=== PATIENT | female | born 1955 | race Caucasian/White ===

== ENCOUNTER 2017-03-23 06:41 | Day surgery (SDC) | payer BC ==
[2017-03-20 11:13] VITALS: BMI 21.9
[2017-03-23] MEDS ORDERED: methylPREDNISolone ACET (DEPO) 40 MG/1 ML VIAL ONE (07:23)
[2017-03-23] MEDS ORDERED: BUPIVACAINE HCL/PF 2.5 MG/ML - 30 ML VIAL IJ ONE (07:24)
[2017-03-23] MEDS ORDERED: LIDOCAINE 1%/EPI 1:100000 (20 ML MULTI DOSE VIAL) ONE (07:24)
[2017-03-23] MEDS ORDERED: THROMBIN (BOVINE) 5,000 UNIT VIAL TP ONE ×2 (07:24→09:31)
--- NOTE | 2017-03-23 07:24 | HP ---
History & Physical Update - History History: No Change - Physical Physical: No Change - Assessment Assessment: No Change - Plan Plan: No Change
[2017-03-23] MEDS ORDERED: MIDAZOLAM HCL 2 MG/2 ML SINGLE DOSE VIAL ONE ×2 (08:15→08:16)
[2017-03-23] MEDS ORDERED: ceFAZolin SODIUM 1 GM VIAL ONE (08:44)
[2017-03-23] MEDS ORDERED: ONDANSETRON 4 MG/2 ML VIAL ONE (08:44)
[2017-03-23] MEDS ORDERED: DEXAMETHASONE SOD PHOSPHATE 4 MG/1 ML VIAL ONE (08:44)
[2017-03-23] MEDS ORDERED: LIDOCAINE 1%/EPI 1:100000 (50 ML MULTI DOSE VIAL) INF ONE (09:00)
[2017-03-23] MEDS ORDERED: ePHEDrine SULFATE 50 MG/1 ML AMPULE ONE (09:10)
[2017-03-23] MEDS ORDERED: PHENYLEPHRINE HCL 10 MG/1 ML SINGLE DOSE VIAL ONE (09:10)
[2017-03-23] MEDS ORDERED: GELATIN SPONGE,ABSORBABLE 1 GM PACKET TP ONE (09:32)
[2017-03-23] MEDS ORDERED: ONDANSETRON 4 MG/2 ML VIAL IVPUSH PRN (09:33)
[2017-03-23] MEDS ORDERED: oxyCODONE HCL 5 MG TABLET PO PRN (09:33)
[2017-03-23] MEDS ORDERED: methylPREDNISolone ACET (DEPO) 40 MG/1 ML VIAL IM ONE (09:37)
[2017-03-23] MEDS ORDERED: BUPIVACAINE HCL/PF 0.25% (2.5MG/ML) 10 ML VIAL IJ ONE (09:39)
[2017-03-23] MEDS ORDERED: LACTATED RINGERS SOLUTION 1,000 ML IV SCH (09:45)
[2017-03-23] MEDS ORDERED: traMADol HCL 50 MG TABLET PO PRN (10:24)
--- NOTE | 2017-03-23 10:27 | SURG ---
Surgery Maintenance Repairman Note Maintenance Repairman: Aditi Childress PA-C Date of Service: 03/23/17 Diagnosis: spinal stenosis Procedure: L4-L5 laminectomy I was present for the entirety of the operative procedure. For further detail, please refer to operative report. Visit type - Case Type Case Type: Scheduled Admission - Emergency Emergency Visit: No - New patient This patient is new to me today: Yes Date on this admission: 03/23/17
--- NOTE | 2017-03-23 10:27 | OP ---
Operative Note - Note: Operative Date: 03/23/17 Pre-Operative Diagnosis: lumbar stenosis Operation: L4-L5 laminecotmy Surgeon: Karsten Rhodes Broomcorn Grader: Aditi Childress Anesthesiologist/MANUFACTURING MECHANIC: Beatriz Soler Anesthesia: Spinal Estimated Blood Loss (mls): 20 Fluid Volume Replaced (mls): 1,000 Operative Report Dictated: Yes
[2017-03-23 11:21] VITALS: TEMP 98.6
--- NOTE | 2017-03-23 11:36 | OP ---
DATE OF OPERATION: 03/23/2017 PREOPERATIVE DIAGNOSIS: Spinal stenosis L4-L5. POSTOPERATIVE DIAGNOSIS: Spinal stenosis L4-L5. PROCEDURE PERFORMED: Laminectomy L4-L5. SURGEON: Karsten Rhodes MD GLOBAL SALES DIRECTOR: RUAL Dunn ESTIMATED BLOOD LOSS: 50 mL. INTRAVENOUS FLUIDS: Per Anesthesia. ANESTHESIA: Spinal. COMPLICATIONS: None. DISPOSITION: The patient was brought to the PACU in stable condition. INDICATIONS FOR SURGERY: The patient is a 61-year-old female who has been suffering from pain from her back down her leg. X-rays were remarkable and showed that she had spinal stenosis at L4-L5. She had gone through an exhaustive course of treatment for this, which included medications, physical therapy, as well as injections and unfortunately the pain continued to persist in spite of all this. At this point , the risks, benefits, and alternatives were discussed and the patient consented to surgery. DESCRIPTION OF PROCEDURE: The patient was brought to the operating room by the Anesthesia staff. After appropriate patient identification was performed, spinal anesthesia was given. She was placed prone onto the operating room table with all areas of bony prominences well padded. At this time, 2 needles were placed into her back to nidhi off the L4-L5 segment and x-ray was taken to confirm placement. Next, 10 mL of lidocaine with epinephrine was injected into her back. At this time, her back was prepped and draped in a sterile manner. At this point a time-out was completed. An incision was made from the top of L4 down to the bottom of L5. Dissection was carried down through the fascia and the fascia was split open at this time and appropriate retractors were then placed. Then a spinal needle was placed onto the L4 lamina to nidhi off the L4-L5 level and an x -ray was taken to confirm placement. The needle was removed and the microscope was brought in. At this point, the interspinous ligament at L4-L5 was removed. Portions of the L4 and L5 lamina were removed. The L4-L5 flavum was removed and complete decompression was performed by removing a portion of the inferior superior facets so by the end of the procedure the L5 nerve root appeared to be well decompressed. All bleeding was well controlled at this time. Steroids was placed over the nerve root and FloSeal was placed over that. The fascia was closed with number 1 Vicryl suture. The subcutaneous tissue was closed with 2-0 Vicryl suture. The skin was closed with 3-0 Monocryl. Dermabond was applied. Steri-Strips were applied. Dressing was applied. The patient was awakened and brought to the PACU in stable condition. Violet ALBARADO/[id number] MTDD
[2017-03-23 12:12] VITALS: BP 101/69; PULSE 63
== END 2017-03-23 12:15 | disposition home or self-care (01) ==
LOC: FASU 06:41
PROVIDERS: ATTEND Orthopaedic Surgery Orthopaedic Surgery of the Spine
PROC: 01NB0ZZ Release Lumbar Nerve, Open Approach (ICD-10-PCS; principal; 2017-03-23 08:15)
DX: M48.061 Spinal stenosis, lumbar region without neurogenic claudication (principal)
CPT/HCPCS: 72100-TC; 76000-TC; 94760

== ENCOUNTER 2020-06-04 06:07 | Day surgery (SDC) | payer BC ==
[2020-05-27 17:21] VITALS: BMI 23.9
[2020-06-04] MEDS ORDERED: ROPIVACAINE HCL 0.5% 30ML VIAL ONE (06:22)
[2020-06-04] MEDS ORDERED: MIDAZOLAM HCL 2 MG/2 ML SINGLE DOSE VIAL ONE (06:22)
[2020-06-04] MEDS ORDERED: DEXAMETHASONE SOD PHOSPHATE/PF 10 MG/ML SDV ONE (07:22)
[2020-06-04] MEDS ORDERED: PROPOFOL 20 ML ONE (08:00)
[2020-06-04] MEDS ORDERED: ePHEDrine SULFATE 50 MG/1 ML AMPULE ONE (08:20)
[2020-06-04] MEDS ORDERED: ceFAZolin SODIUM 1 GM VIAL IVPB ONE (08:20)
[2020-06-04] MEDS ORDERED: ceFAZolin SODIUM 1 GM VIAL ONE (08:22)
[2020-06-04] MEDS ORDERED: DEXAMETHASONE SOD PHOSPHATE 4 MG/1 ML VIAL ONE (08:25)
[2020-06-04] MEDS ORDERED: ONDANSETRON 4 MG/2 ML VIAL ONE ×2 (08:25→09:05)
[2020-06-04] MEDS ORDERED: KETOROLAC TROMETHAMINE 30 MG/1 ML VIAL ONE (09:05)
[2020-06-04 10:20] VITALS: PULSE 72
[2020-06-04 11:58] VITALS: BP 110/65; TEMP 98
[2020-06-04] MEDS ORDERED: oxyCODONE HCL 5 MG TABLET PO PRN (12:53)
[2020-06-04] MEDS ORDERED: ONDANSETRON 4 MG/2 ML VIAL IVPUSH PRN (12:53)
[2020-06-04] MEDS ORDERED: LACTATED RINGERS SOLUTION 1,000 ML IV SCH (13:00)
== END 2020-06-04 10:35 | disposition home or self-care (01) ==
LOC: FASU 06:07
PROVIDERS: ATTEND Orthopaedic Surgery
PROC: 0RNK4ZZ Release Left Shoulder Joint, Percutaneous Endoscopic Approach (ICD-10-PCS; principal; 2020-06-04 08:00)
DX: M75.42 Impingement syndrome of left shoulder (principal); M19.012 Primary osteoarthritis, left shoulder; M75.52 Bursitis of left shoulder
CPT/HCPCS: 94760

== ENCOUNTER 2021-12-10 13:34 | Emergency (ER) | payer BC ==
[2021-12-10 13:47] VITALS: BMI 23.9
[2021-12-10 14:59] LABS: ALBUMIN 4.5 g/dl (3.4-5.0); BILIRUBIN,TOTAL 0.9 mg/dl (0.2-1); CALCIUM 10.7 mg/dl (8.5-10); CREATININE 0.7 mg/dl (0.55-1.3); TOT PROT 7.5 g/dl (6.4-8.2)
[2021-12-10 15:07] LABS: HEMOGLOBIN 14.8 G/dL (10.7-15.3); MCH 31.4 pg (25.7-33.7); MCHC 34.5 g/dl (32.0-36.0); MEAN CELL VOLUME 91.2 fl (80-96); MEAN PLT VOLUME 7.7 fl (7.5-11.1); PLATELET COUNT 289.9 10^3/uL (134-434); RBC 4.72 10^6/uL (3.60-5.2); RDW 13.9 % (11.6-15.6); WHITE BLOOD COUNT 4.8 10^3/uL (4.0-10.8)
[2021-12-10 16:17] VITALS: BP 130/82; PULSE 82; TEMP 98.6
== END 2021-12-10 16:26 | disposition home or self-care (01) ==
LOC: FER 13:34
DX: R06.02 Shortness of breath (principal)
CPT/HCPCS: 0241U-QW; 36415; 71045-TC-FY; 80053; 84484; 85025; 93005; 99285-25